=== PATIENT | female | born 2000 | race Caucasian/White ===

== ENCOUNTER 2021-12-14 08:45 | Emergency (ER) | payer OTHER, SELFPAY ==
[2021-12-14] VITALS (18 sets, daily range): BP systolic 103–124; BP diastolic 68–86; PULSE 106; RESP 20; TEMP 36.7; O2SAT 95–100
--- NOTE | ~2021-12-14 | XR_ITS ---
EXAMINATION: XR chest 1V portable EXAM DATE: 12/14/2021 09:40 INDICATION: Cough and chest tightness. TECHNIQUE: Portable AP frontal chest x-ray was obtained. There is no prior study for comparison. FINDINGS: Left midlung zone nodule probably patient's nipple. The lungs are otherwise clear. There a re no pleural effusions. The cardiomediastinal silhouette is within normal limits. There is no pneu mothorax suspected. The bones and soft tissues are unremarkable. IMPRESSION: No acute cardiopulmonary findings. Reviewed, dictated and finalized at location B. [facility]ATOR
--- NOTE | 2021-12-14 10:28 | ED.GENADULT ---
HPI - General Adult General Chief complaint: Upper Respiratory Infection Stated complaint: cough x2 days Time Seen by Provider: 12/14/21 09:28 History of Present Illness HPI narrative: 21-year-old female presented the emergency department for evaluation of cough and congestion for approximately 2 days. Patient is not vaccinated to COVID. Patient does report body aches and fatigue. Related Data Home Medications Medication Instructions Recorded Confirmed ferrous sulfate [Iron (ferrous 325 mg PO DAILY 12/14/21 sulfate)] multivitamin 1 tablet PO DAILY 12/14/21 Allergies Allergy/AdvReac Type Severity Reaction Status Date / Time morphine Allergy Rash Verified 12/14/21 08:52 silver AdvReac Redness of Verified 12/14/21 08:52 [From [employer] Mesh] Skin Review of Systems Review of Systems: CONSTITUTIONAL: Subjective fever chills and body aches EYES: Denies visual changes, redness, or discharge. ENT: Sore throat CARDIOVASCULAR: Denies chest pain, palpitations, or edema. RESPIRATORY: Does report cough and congestion GASTROINTESTINAL: Denies abdominal pain, nausea, vomiting, or diarrhea. GENITOURINARY: Denies dysuria or hematuria. SKIN: Denies rash or itching. MUSCULOSKELETAL: Denies back pain, joint pain, or myalgia. NEUROLOGIC: Denies headache, numbness, or weakness. PSYCHIATRIC: Denies anxiety or depression. All systems reviewed & are unremarkable except as noted in HPI and below Exam Narrative: APPEARANCE: Well appearing, no pain, no distress, well-nourished. HEAD: normocephalic, atraumatic. EYES: PERRLA/EOMI, conjunctivae clear. NOSE: Normal no drainage EARS:TMS clear with good light reflex. THROAT: Pharynx clear, no exudate. NECK: Supple. No adenopathy, no masses. RESPIRATORY: Airway patent, respirations nonlabored. Clear to auscultation bilaterally, no rales, rhonchi, wheezing. CARDIOVASCULAR: Regular rate and rhythm without murmurs rubs or gallops. ABDOMINAL: Soft, nontender, nondistended, normal bowel sounds MUSCULOSKELETAL: Moves all extremities. Strength/ROM intact, No edema, No calf tenderness. NEURO: Alert. Cranial nerves II through XII intact. SKIN: Warm, dry. Normal Color Course Course Emergency Course: Patient was updated on the results of her labs and imaging. Patient's COVID test is still pending. Patient was provided an additional inhaler and Tessalon Perles for symptom control. Patient was encouraged to have close follow-up with her primary care physician. Patient was also educated on reasons to return to the emergency room. All question concerns were addressed. Patient was in no distress at time of discharge from the emergency room. Vital Signs Vital signs: Vital Signs Temperature 98.0 F 12/14/21 08:48 Pulse Rate 106 H 12/14/21 08:48 Respiratory Rate 20 12/14/21 08:48 Blood Pressure 124/86 12/14/21 08:48 Pulse Oximetry 99 12/14/21 08:48 Temperature 98.0 F 12/14/21 08:48 Pulse Rate 106 H 12/14/21 08:48 Respiratory Rate 20 12/14/21 08:48 Blood Pressure 111/76 12/14/21 11:01 Pulse Oximetry 99 12/14/21 11:15 Medical Decision Making Vital Signs Vital Signs: Vital Signs Temperature 98.0 F 12/14/21 08:48 Pulse Rate 106 H 12/14/21 08:48 Respiratory Rate 20 12/14/21 08:48 Blood Pressure 124/86 12/14/21 08:48 Pulse Oximetry 99 12/14/21 08:48 Temperature 98.0 F 12/14/21 08:48 Pulse Rate 106 H 12/14/21 08:48 Respiratory Rate 20 12/14/21 08:48 Blood Pressure 111/76 12/14/21 11:01 Pulse Oximetry 99 12/14/21 11:15 Lab Data Lab results reviewed: Yes I reviewed the patient's lab results. Labs: Lab Results 12/14/21 Range/Units 11:00 SARS-CoV-2 RNA (RT-PCR) Pending Strep Screen Presumptive Negative *(Reference Range: Negative)* Imaging Data Radiologist's impression: Impressions Chest X-Ray 12/14/21 09:43 IMPRESSION: No acute cardiopulmonary fin
[2021-12-14 21:56] LABS: SARS-CoV-2 RNA PCR Negative
== END 2021-12-14 11:36 | disposition home or self-care (01) ==
PROVIDERS: Emergency Provider Emergency Medicine; PCP Family Medicine
DX: B34.9 Viral infection, unspecified (principal); Z20.822 Contact with and (suspected) exposure to COVID-19
CPT/HCPCS: 71045; 87081; 87880; 99283; C9803; U0003; U0005

== ENCOUNTER 2022-04-19 13:09 | Emergency (ER) | payer OTHER, SELFPAY ==
[2022-04-19 13:12] VITALS: BP 139/117; PULSE 72; RESP 14; TEMP 36.1; O2SAT 100
--- NOTE | 2022-04-19 14:30 | ED.BACK ---
HPI - Back Pain/Injury General Chief Complaint: Back Pain/Injury Stated Complaint: Back Pain x2 days Time Seen by Provider: 04/19/22 13:27 History of Present Illness HPI Narrative: Patient is a 21-year-old female complaining of right lower back pain, I have arthritis in that area , 8 out of 10, dull, worse with movement and palpation, accompanied by increased urinary frequency started a few days ago. Patient denies any injury to the area. Patient denies any weakness, numbness or incontinence. Patient denies any fever or chills Related Data Home Medications Medication Instructions Recorded Confirmed ferrous sulfate 325 mg (65 mg 325 mg PO DAILY 12/14/21 iron) tablet (Iron (ferrous sulfate)) multivitamin 1 tablet PO DAILY 12/14/21 Allergies Allergy/AdvReac Type Severity Reaction Status Date / Time morphine Allergy Rash Verified 12/14/21 08:52 silver AdvReac Redness of Verified 12/14/21 08:52 [From [employer] AG Mesh] Skin Review of Systems Review of Systems: Per HPI All systems reviewed & are unremarkable except as noted in HPI and below PMFSH Comments Past medical history: Arthritis Family history: None Social history: Vapes, no EtOH use, occasional marijuana use Exam Const: General: cooperative, healthy appearing, comfortable, no acute distress, well developed, alert and awake; No confusion Orientation/consciousness: oriented to person, oriented to place, oriented to time, patient oriented x3 and No confusion Limitations: no limitations HENMT: Head: normal to inspection, normocephalic and atraumatic Ears: hearing grossly normal bilaterally, TM normal on the right and TM normal on the left General nose exam: Normal external nose present, Normal nares present and No nasal discharge present Face and sinus: normal facial exam Mouth: Yes Normal oral and palatal mucosa present, Yes lip normal, Yes tongue normal and Yes oropharynx normal Throat: posterior oropharynx normal, tonsils normal and uvula midline Eyes: General: appearance normal, both eyes and all related structures Pupils: Equal, round and reactive pupils present EOM: EOMs intact bilaterally Neck: Neck: normal visual inspection, full ROM, no lymphadenopathy and no meningeal signs Chest: Chest palpation & inspection: normal inspection of the chest Resp: Effort & Inspection: normal respiratory effort, able to speak in complete sentences, no respiratory distress and not tachypneic Auscultation: clear to auscultation bilaterally, no crackles, no rales, no rhonchi and no wheezes Cardio: Rate: regular rate Rhythm: regular rhythm GI: Inspection: normal to inspection GI Palp: No abdominal tenderness, Yes Soft to palpation, No Tenderness to palpation present (GI), No Guarding due to palpation present (GI), No Rigid due to palpation and No Rebound tenderness present Auscultation: normal bowel sounds : General: Yes no CVA tenderness Back/Spine/Pelvis: Back: no CVA tenderness Other: Tenderness on palpation right lumbar paraspinal area, negative for vertebral tenderness Skin: General skin exam: normal color, no rashes or lesions noted, elasticity normal and turgor normal Neuro: General: oriented to person, oriented to place, oriented to time, patient oriented x3, tone normal, moves all extremities, Normal light touch and pain sensation, no meningeal signs, no focal motor deficits, CN's II-XI intact bilaterally and No confusion Cranial nerves: Yes Equal, round and reactive pupils present Speech: No Abnormal speech present Sensory Exam: No Sensory deficit (Neuro) Extrem: General: normal to inspection, full ROM and capillary refill normal Psych: Appearance: grossly normal and well kempt Mental Status: mental status grossly normal Speech and movement: Normal speech and movement present Affect: normal affect Attitude: cooperative Thought process: Normal thought process present Thought content: Yes Normal thought content present Insight: Good
[2022-04-19 14:54] LABS: Color Urine Yellow (Yellow)
[2022-04-19 14:55] LABS: Appearance Urine Cloudy (Clear)
[2022-04-19 14:56] LABS: Blood Urine Negative (Negative); Glucose Urine UA Negative (Negative); Ketones Urine Negative (Negative); Nitrate Urine Negative (Negative); Protein Urine Negative (Negative)
[2022-04-19 14:57] LABS: Add Urine Microscopic? YES; Bilirubin Urine Negative (Negative); Leukocyte Esterase Ur Negative LEU/UL (Negative); Urobilinogen Urine 0.2 mg/dL (<2.0)
[2022-04-19 15:01] LABS: Amorphous Sediment Urine Few; Bacteria Urine Trace /hpf
[2022-04-19 16:06] VITALS: BP 108/71; PULSE 75; RESP 16; O2SAT 97
[2022-04-19] MEDS: CYCLOBENZAPRINE HCL 10 MG TABLET PO (16:13)
[2022-04-19] MEDS: KETOROLAC 30 MG/ML VIAL (*BKC) IM (16:13)
== END 2022-04-19 16:48 | disposition home or self-care (01) ==
PROVIDERS: Emergency Provider Emergency Medicine; PCP Family Medicine
DX: S39.012A Strain of muscle, fascia and tendon of lower back, initial encounter (principal); N39.0 Urinary tract infection, site not specified; M19.90 Unspecified osteoarthritis, unspecified site; X58.XXXA Exposure to other specified factors, initial encounter
CPT/HCPCS: 81001; 81025; 87086; 96372; 99283; A9270; J1885